=== PATIENT | male | born 1975 | race Caucasian/White ===

== ENCOUNTER 2016-06-02 21:05 | Emergency (ER) | payer OTHER | END 2016-06-02 21:25 | disposition home or self-care (01) | DX: M19.071 Primary osteoarthritis, right ankle and foot (principal); R03.0 Elevated blood-pressure reading, without diagnosis of hypertension ==

== ENCOUNTER 2017-05-29 11:30 | Emergency (ER) | payer OTHER ==
[2017-05-29 11:43] VITALS: BP 135/75
--- NOTE | 2017-05-29 12:07 | ED Physician Documentation ---
History of Present Illness - Stated complaint Stated Complaint: LUMP L ABD - Chief complaint Chief Complaint: Abd Pain - History obtained from History obtained from: Patient, Family (spouse) - History of Present Illness Timing: How many weeks ago (2) - Additonal information Additional information: The patient is a 41-year-old male who presents with a "lump" on his left abdominal wall. He first noticed it 2 weeks ago, and it has been waxing and waning in size since that time. Yesterday when he was lifting furniture he got the impression that the lump got a small degree larger. He is concerned about the possibility of hernia. Review of Systems Constitutional: denies: Fever Nose: denies: Congestion Respiratory: denies: Cough GI: denies: Abdominal Pain, Nausea, Vomiting : denies: Dysuria, Testicular pain Skin: denies: Rash PD PAST MEDICAL HISTORY - Past Medical History Cardiovascular: None Respiratory: None Neuro: None Endocrine/Autoimmune: None GI: None : None HEENT: None Psych: None Musculoskeletal: Other Derm: None - Past Surgical History Past Surgical History: No - Allergies Allergies/Adverse Reactions: Allergies Allergy/AdvReac Type Severity Reaction Status Date / Time No Known Drug Allergies Allergy Verified 05/29/17 11:43 - Social History Does the pt smoke?: No Smoking Status: Never smoker Does the pt drink ETOH?: Yes Does the pt have substance abuse?: No - Immunizations Immunizations are current?: Yes - POLST Patient has POLST: No PD ED PE NORMAL - Vitals Vital signs reviewed: Yes (Borderline systolic hypertension initially.) - General General: Alert and oriented X 3, Well developed/nourished - HEENT HEENT: Atraumatic - Cardiac Cardiac: RRR - Respiratory Respiratory: No respiratory distress - Abdomen Abdomen: Normal bowel sounds, Soft, Non tender, No organomegaly, Other (There is a small, approximately 1 cm x 1/2 cm, lump on the left abdominal wall, at the anterior axillary line. This is a firm, nontender mass, consistent with lipoma.) - Derm Derm: No rash Results - Vitals Vitals: Vital Signs - 24 hr 05/29/17 11:36 Temperature 36.6 C Heart Rate 53 L Respiratory 15 Rate Blood Pressure 135/75 H O2 Saturation 100 Oxygen O2 Source Room air PD MEDICAL DECISION MAKING - ED course Complexity details: considered differential, d/w patient, d/w family ED course: The patient's presentation is most consistent with benign lipoma on the left abdominal wall. There is no clinical evidence of infectious process, and I doubt hernial defect. I discussed with the patient and his the diagnosis, and its benign nature. I also discussed potentially worrisome signs or symptoms that should prompt reevaluation. Departure - Departure Disposition: 01 Home, Self Care Clinical Impression: Lipoma of abdominal wall Condition: Stable Instructions: ED Lipoma Comments: The small lump on the left side of your abdomen is most likely caused by a lipoma. This is a benign condition which does not require any specific intervention. Follow up with your primary physician, or return to the emergency department, if you develop enlarging of the lump, associated pain, any sign of infection, or otherwise worsening symptoms. Discharge Date/Time: 05/29/17 12:12
== END 2017-05-29 12:12 | disposition home or self-care (01) ==
LOC: ED 11:30
DX: D17.1 Benign lipomatous neoplasm of skin and subcutaneous tissue of trunk (principal)
CPT/HCPCS: 99282; 99283

== ENCOUNTER 2018-12-24 12:59 | Outpatient (CLI) | payer OTHER ==
--- NOTE | 2018-12-24 14:48 | MRI Report ---
Reason: CHRONIC RIGHT KNEE PAIN Procedure Date: 12/24/2018 Accession Number: [id number] / [id number] Procedure: MRI - Knee RT W/O CPT Code: Final Report FULL RESULT: EXAM: RIGHT KNEE MRI WITHOUT CONTRAST EXAM DATE: 12/24/2018 02:06 PM. CLINICAL HISTORY: CHRONIC RIGHT KNEE PAIN. COMPARISON: None. TECHNIQUE: Multiplanar, multisequence T1-weighted and fluid-sensitive sequences of the knee without contrast. Other: None. FINDINGS: Bones and articular cartilage: Bone island at the lateral femoral condyle. No acute fracture. No marrow edema. No subluxation. Articular cartilage is within normal limits. Medial Meniscus: Horizontal and oblique tears at the posterior horn and body. Lateral Meniscus: The lateral meniscus is intact. Cruciate Ligaments: The anterior and posterior cruciate ligaments are intact. Collateral Ligaments: The medial collateral and lateral collateral ligamentous structures are intact. Tendons: The quadriceps, patellar, semimembranosus, and popliteus tendons are unremarkable. There is a small synovial cyst or ganglion adjacent to the distal aspect of the popliteus tendon. Musculature: No edema or fatty atrophy. Other: No effusion. No popliteal cyst. No loose bodies. The medial and lateral retinacula are intact. The subcutaneous tissues and fat pads are unremarkable. IMPRESSION: 1. Horizontal and oblique tears at the posterior horn and body of the medial meniscus. 2. Small synovial cyst or ganglion adjacent to the distal aspect of the popliteus tendon. RADIA
== END 2018-12-24 13:00 | disposition home or self-care (01) ==
LOC: DI 12:59
PROVIDERS: ATTEND Orthopaedic Surgery Sports Medicine
DX: S83.241A Other tear of medial meniscus, current injury, right knee, initial encounter (principal); M67.863 Other specified disorders of tendon, right knee

== ENCOUNTER 2019-02-25 11:12 | Emergency (ER) | payer OTHER | END 2019-02-25 11:26 | disposition left against medical advice (07) | LOC: ED 11:12 | DX: Z53.21 Procedure and treatment not carried out due to patient leaving prior to being seen by health care provider (principal) ==

== ENCOUNTER 2022-01-31 16:24 | Emergency (ER) | payer OTHER ==
--- NOTE | 2022-01-31 16:48 | ED Physician Documentation ---
PD HPI CHEST PAIN - Stated complaint Stated Complaint: CHEST PX - Chief complaint Chief Complaint: Cardiac - History obtained from History obtained from: Patient - Additional information Additional information: 46-year-old healthy gentleman has had 3 episodes of chest pain today. The first started with light activity around the house about an hour ago, low central nonradiating pain that was severe for 10 minutes, then abated, came back about 10 minutes later somewhat higher in the chest and with some radiation between the shoulder blades, abated again and had one third episode. He was not asso ciate with trouble breathing, nausea, or sweats. Pain-free now. No clear exertional component. No personal history of heart disease. No risk factors with the exception of his dad had a anginal episode once, not clearly a coronary issue though. Denies pedal edema, calf pain, or recent travel. Review of Systems Constitutional: denies: Fever, Chills Cardiac: reports: Chest pain / pressure. denies: Palpitations, Pedal edema, Calf pain Respiratory: denies: Dyspnea, Cough GI: denies: Abdominal Pain Neurologic: reports: Headache (Mild,) PD PAST MEDICAL HISTORY - Past Medical History Cardiovascular: None Respiratory: None Endocrine/Autoimmune: None GI: None : None HEENT: None Psych: None Musculoskeletal: Other Derm: None - Past Surgical History Past Surgical History: No - Allergies Allergies/Adverse Reactions: Allergies Allergy/AdvReac Type Severity Reaction Status Date / Time No Known Drug Allergies Allergy Verified 01/31/22 16:33 - Social History Does the pt smoke?: No Smoking Status: Never smoker Does the pt drink ETOH?: Yes Does the pt have substance abuse?: No - Immunizations Immunizations are current?: Yes - POLST Patient has POLST: No PD ED PE NORMAL - Vitals Vital signs reviewed: Yes - General General: Alert and oriented X 3, No acute distress, Well developed/nourished - HEENT HEENT: PERRL, EOMI - Neck Neck: Supple, no meningeal sign, No bony TTP - Cardiac Cardiac: RRR, No murmur - Respiratory Respiratory: No respiratory distress, Clear bilaterally - Abdomen Abdomen: Normal bowel sounds, Soft, Non tender - Derm Derm: Normal color, Warm and dry - Extremities Extremities: No edema, No calf tenderness / cord - Neuro Neuro: Alert and oriented X 3, Normal speech Results - Vitals Vitals: Vital Signs - 24 hr 01/31/22 01/31/22 01/31/22 16:28 16:33 17:03 Temperature 36.3 C L Heart Rate 54 L 55 L Respiratory 14 13 Rate Blood Pressure 140/93 H 123/84 H O2 Saturation 99 99 Oxygen O2 Source Room air - EKG (time done) 1631 Rate: Rate (enter#) (61) [place]: Normal Intervals: Normal [place] QRS: Normal Ischemia: Normal ST segments - Labs Labs: Laboratory Tests 01/31/22 01/31/22 01/31/22 16:51 16:51 16:51 WBC 6.4 RBC 5.21 Hgb 14.7 Hct 45.4 MCV 87.1 MCH 28.2 MCHC 32.4 RDW 12.0 Plt Count 286 MPV 9.1 Neut # (Auto) 3.6 Lymph # (Auto) 2.1 [place] # (Auto) 0.5 Eos # (Auto) 0.2 Baso # (Auto) 0.0 Absolute Nucleated RBC 0.00 Nucleated RBC % 0.0 Sodium 142 Potassium 3.0 L Chloride 107 Carbon Dioxide 25 Anion Gap 10.0 BUN 16 Creatinine 0.7 Estimated GFR (MDRD) 122 Glucose 89 Calcium 7.8 L Total Bilirubin 0.5 AST 20 ALT 18 Alkaline Phosphatase 53 Troponin I High Sens 2.8 Total Protein 6.6 L Albumin 3.6 Globulin 3.0 Albumin/Globulin Ratio 1.2 Lipase 29 - Rads (name of study) 1 view chest x-ray is unremarkable. Radiology: Final report received, EMP read indepedently PD Medical Decision Making - ED course ED course: Heart score 2, one-point each for age and moderately suspicious history. Departure - Departure Disposition: 01 Home, Self Care Clinical Impression: Chest pain Qualifiers: Chest pain type: unspecified Qualified Code(s): R07.9 - Chest pain, unspecified Condition: Good Record reviewed to determine appropriate education?: Yes Instructions: ED Chest Pain Atypical Unkn Cause Comments: No clear cardiac cause of the chest pain today, but you do need to follow-up with your primary care physician, next available appointment for consideration of follow-up stress testing. Return immediately if you develop recurrent chest pain. Until directed otherwise by your physician, take a baby aspirin a day.
[2022-01-31 16:58] LABS: BASOPHILS % (AUTO) 0.6 %; EOSINOPHILS # (AUTO) 0.2 10^3/uL (0.0-0.7); EOSINOPHILS % (AUTO) 2.3 %; HCT - HEMATOCRIT 45.4 % (42.0-52.0); HGB - HEMOGLOBIN 14.7 g/dL (14.0-18.0); LYMPHOCYTES # (AUTO) 2.1 10^3/uL (1.5-3.5); LYMPHOCYTES % (AUTO) 33.1 %; MEAN CORPUSCULAR HEMOGLOBIN 28.2 pg (27.0-31.0); MEAN CORPUSCULAR HGB CONC 32.4 g/dL (32.0-36.0); MEAN CORPUSCULAR VOLUME 87.1 fL (80.0-94.0); MEAN PLATELET VOLUME 9.1 fL (7.4-11.4); MONOCYTES # (AUTO) 0.5 10^3/uL (0.0-1.0); MONOCYTES % (AUTO) 8.1 %; NEUTROPHILS # (AUTO) 3.6 10^3/uL (1.5-6.6); NEUTROPHILS % (AUTO) 55.7 %; PLT - PLATELET COUNT 286 10^3/uL (130-450); RED BLOOD COUNT 5.21 10^6/uL (4.70-6.10); WHITE BLOOD COUNT 6.4 x10^3/uL (4.8-10.8)
--- NOTE | 2022-01-31 16:58 | XRAY Report ---
PROCEDURE: Chest 1 View X-Ray INDICATIONS: Chest Pain TECHNIQUE: One view of the chest was acquired. COMPARISON: 11/17/2012. FINDINGS: Surgical changes and devices: None. Lungs and pleura: No pleural effusions or pneumothorax. Lungs are clear. Mediastinum: Mediastinal contours appear normal. Heart size is normal. Bones and chest wall: No suspicious bony lesions. Overlying soft tissues appear unremarkable. IMPRESSION: No acute cardiopulmonary pathology. Reviewed by: Bang Duarte MD on 01/31/2022 4:56 PM PST Approved by: Bang Duarte MD on 01/31/2022 4:56 PM [facility] Station ID: [id number]
[2022-01-31 17:07] VITALS: BP 123/84
[2022-01-31 17:16] LABS: ALBUMIN 3.6 g/dL (3.2-5.5); ALBUMIN/GLOBULIN RATIO 1.2 (1.0-2.2); BILIRUBIN,TOTAL 0.5 mg/dL (0.2-1.0); CALCIUM 7.8 mg/dL (8.5-10.3); CREATININE 0.7 mg/dL (0.6-1.2); TOTAL PROTEIN 6.6 g/dL (6.7-8.2)
== END 2022-01-31 17:40 | disposition home or self-care (01) ==
LOC: ED 16:24
DX: R07.9 Chest pain, unspecified (principal)
CPT/HCPCS: 36415; 80053; 83690; 84484; 85025; 93005; 99284